=== PATIENT | male | born 1975 | race Caucasian/White ===

== ENCOUNTER → 2017-02-15 | Outpatient (CLI) | payer OTHER ==
--- NOTE | 2017-02-15 09:04 | KCIC ---
Indication: Left foot pain. Time of exam 8:41 AM 3 views of the left foot were obtained. The metatarsals are intact. The phalanges appear intact. No periosteal reaction or stress reaction is seen. The midfoot and hindfoot are unremarkable. No fractures are identified. IMPRESSION: No acute bony abnormality is detected. Electronically signed by: Zenon Bryson MD (02/15/2017 9:00 AM) [id number]
== END | disposition home or self-care (01) ==
LOC: KCIC 08:26
PROVIDERS: ATTEND Family Medicine
DX: M79.672 Pain in left foot (principal)
CPT/HCPCS: 73630